=== PATIENT | male | born 1940 | race Caucasian/White ===

== ENCOUNTER → 2016-11-15 | Day surgery (SDC) | payer OTHER ==
[~2016-11-15] VITALS: Ht 175.3 cm; Wt 68.9 kg
--- NOTE | 2016-11-15 16:16 | Operative Report ---
Operative/Inv Procedure Report Surgery Date: 11/15/16 Name of Procedure: Cystoscopy, left retrograde pyelogram, transurethral resection of bladder tumors Pre-Operative Diagnosis: Recurrent bladder tumors Post-Operative Diagnosis: Same Estimated Blood Loss: less than 50ml Surgeon/Countersinker Balance Screw Hole: Shilpi MURRAY MD,STEVEN Teresa Anesthesia: general endotracheal tube Drains: 22 Malagasy Smith Specimens: Bladder tumor chips Complications: None Condition: Stable Operative Indication: This patient underwent transurethral resection of a low-grade superficial bladder tumor 6-8 months ago. On routine follow-up cystoscopy was noted to have multiple small recurrent bladder tumors and was scheduled now for a repeat resection of these tumors. Since he had a noncontrast CT scan due to an elevated creatinine plan was also to perform bilateral retrograde pyelograms Operative/Procedure Note Note: Patient was taken to the cystoscopy room and identified. He was placed in supine position on the cystoscopy table. A timeout was executed appropriately with the patient awake. Gen. anesthesia was induced via LMA. He was then placed in the dorsal lithotomy position and prepped and draped in usual fashion for cystoscopy. Surgical pause was executed appropriately. A fluoroscopy images taken with a marker on the right side of the abdomen to confirm the correct orientation of the fluoroscopy image. The 22 Malagasy cystoscope sheath was placed into the bladder under direct vision using the 30 lens. Anterior urethra was normal. The prostatic urethra was partially obstructing. Upon entering the bladder cystoscopy was performed. The left ureteral orifice was normal in location and appearance. The right ureteral orifice could not be identified. As a diverticulum just behind ureteric ridge on the right and a question of some scar tissue in the area which may have distorted the anatomy. Also the bladder was at least moderately trabeculated. Were multiple low-grade bladder tumor seen. The vast majority of these were on the dome. There are also bladder tumor seen on the floor and small one on the left lateral wall. At this point an open-ended catheter was placed into the left ureteral orifice and left retrograde pyelogram performed. There was no evidence of bolus off filling defect in the ureter or in the left renal collecting system. Methylene blue was given to try to aid in identification of the right ureteral orifice but the patient's urine never did turn blue. At this point the cystoscope was removed. The urethral meatus was dilated with [place] sounds to 28 Malagasy. The 26 Malagasy resectoscope sheath was placed into the bladder using the obturator. All visible bladder tumors were resected. Of note there was difficulty in resecting tumors on the dome of the bladder and at this point the anesthesia was converted from an LMA to general anesthesia with intubation and muscle relaxation. Under this anesthesia all visible tumor on the dome of the bladder was resected. The bladder was again inspected and no further bladder tumors were seen. The roller ball was then used to cauterize all resection sites. The bladder was left full and the resectoscope removed. A 22 Malagasy Smith catheter was inserted and urine was very light pink. Patient tolerated the procedure well. At its completion was taken recovery room extubated in stable condition. Findings: Multifocal small superficial appearing bladder tumors with the majority of them being on the dome of the bladder. Significantly trabeculated bladder with inability to identify right ureteral orifice Discharge Disposition: PACU
--- NOTE | 2016-11-16 13:04 | RADIOLOGY REPORT ---
EXAMINATION: INTRAOPERATIVE FLUOROSCOPIC GUIDANCE XR KIDNEYS, URETER, BLADDER CLINICAL INFORMATION: Verbal orders given per Dr. Waddell in OR 6. Bilateral retrograde pyelogram. COMPARISON: None. TECHNIQUE: Fluoroscopic time was utilized in the OR for Dr. Waddell. Fluoroscopic images were obtained in AP projections. FINDINGS: Left retrograde pyelogram demonstrates a catheter in the distal left ureter with contrast outlining a normal caliber left ureter and no intraluminal filling defects seen. The pelvicalyceal system is opacified with contrast. There is pyelolymphatic backflow of contrast which partially obscures the lower pole of the collecting system. No filling defects are seen. No images of the right ureter or kidney. FLUOROSCOPY TIME: 0.9 minutes of fluoroscopic time was utilized for the entirety of this examination. Exposures: 7 fluoroscopic images. No exposures obtained. IMPRESSION: Left retrograde pyelogram. There is only partial visualization of the lower pole collecting system and partial obscuration by pyelolymphatic backflow. Correlate with the fluoroscopic real-time observations. No abnormality is seen in the left ureter.
== END ==
LOC: STS 02:55
DX: C67.8 Malignant neoplasm of overlapping sites of bladder (principal); N32.89 Other specified disorders of bladder; I12.9 Hypertensive chronic kidney disease with stage 1 through stage 4 chronic kidney disease, or unspecified chronic kidney disease; N18.3 Chronic kidney disease, stage 3 (moderate); Z86.718 Personal history of other venous thrombosis and embolism
CPT/HCPCS: 74000; 88307; J0131; J0690; J2250